=== PATIENT | female | born 1990 | race Caucasian/White ===

== ENCOUNTER 2020-12-09 17:21 | Emergency (ER) | payer BC ==
[~2020-12-09] VITALS: Ht 162.6 cm; Wt 91.6 kg
[2020-12-09 18:04] VITALS: BP_SYST 118
[2020-12-09] MEDS ORDERED: IBUPROFEN 600 MG TABLET PO ONE (19:30)
[2020-12-09 20:40] VITALS: BP_SYST 116
== END 2020-12-09 20:40 | disposition home or self-care (01) ==
LOC: SED 17:21
DX: S93.601A Unspecified sprain of right foot, initial encounter (principal); I10 Essential (primary) hypertension; J45.909 Unspecified asthma, uncomplicated; X50.1XXA Overexertion from prolonged static or awkward postures, initial encounter; Y93.89 Activity, other specified; Y92.89 Other specified places as the place of occurrence of the external cause; Y99.8 Other external cause status
CPT/HCPCS: 99284

== ENCOUNTER 2020-12-16 14:30 | Emergency (ER) | payer BC ==
[~2020-12-16] VITALS: Ht 162.6 cm; Wt 91.6 kg
[2020-12-16 14:35] VITALS: BP_SYST 148
[2020-12-16] MEDS ORDERED: HYDR-3917 PO (16:54)
[2020-12-16] MEDS ORDERED: IBUP-1969 PO (16:54)
[2020-12-16 17:48] VITALS: BP_SYST 148
== END 2020-12-16 17:49 | disposition home or self-care (01) ==
LOC: SED 14:30
DX: S93.401A Sprain of unspecified ligament of right ankle, initial encounter (principal); I10 Essential (primary) hypertension; J45.909 Unspecified asthma, uncomplicated; Z79.899 Other long term (current) drug therapy; X50.1XXA Overexertion from prolonged static or awkward postures, initial encounter; Y93.02 Activity, running; Y92.89 Other specified places as the place of occurrence of the external cause; Y99.8 Other external cause status
CPT/HCPCS: 99284